=== PATIENT | male | born 1980 | race Two or more races ===

== ENCOUNTER → 2018-12-12 | Outpatient (CLI) | payer OTHER ==
[~2018-12-12] MED LIST: CHLO500T14 PO; CONTRAST GIVEN. MC PRN; ETOD400T PO; HYDR-2761 PO; IOHEXOL 180 MG/ML 10 ML VIAL. IJ ONE
[2018-12-12 09:17] VITALS: BP 117/69
--- NOTE | 2018-12-12 10:00 | NUR ---
bandaid on mid back site was clean and dry- Addendum: 12/12/18 at 1308 by ROGELIO NETTLES RN pt c/o achy discomfort at site- hand held cool gel pack applied to site with some relief. reviewed d/c instructions. pt taken out to vehicle per w/c- driven home by henry
--- NOTE | 2018-12-12 10:24 | RAD ---
Lumbar myelogram, 12/12/2018: History: Radicular left leg pain Under local anesthesia, aseptic conditions and fluoroscopic guidance a lumbar puncture was performed at the upper L3 level utilizing a 25-gauge Kathy spinal needle. Good clear CSF flow was obtained following which 12 cc of Omnipaque 180 was injected into the thecal sac. The spinal needle was then removed and hemostasis obtained. Appropriate digital imaging was then performed. 2.4 minutes of fluoroscopy time is utilized. 14 fluoroscopic spot images were recorded. The patient tolerated the procedure well and was sent to CT in good condition. The following findings were delineated on the myelogram: 1. The thecal sac throughout the lower lumbar spine is generally slightly narrowed compatible with congenitally short pedicles. There is a mildly prominent anterior epidural space at L5-S1 with the thecal sac terminating just inferior to the disc level. 2. There is a mild anterior extradural defect at L4-5. 3. There is symmetric opacification of the nerve root sleeves. CT lumbar spine-post myelogram, 12/12/2018: Multidetector CT imaging was performed with multiplanar reconstructions produced. The following findings are delineated: 1. No significant posterior disc bulge or protrusion is seen at L1-2, L2-3 or L3-4. The central spinal canal and neural foramina are well maintained. 2. At L4-5 there is mild broad-based posterior annular bulging. There is mild posterior ligamentous thickening related to minimal facet joint arthropathy. The thecal sac measures 7-8 mm in AP diameter at the midline at this level. There is mild inferior foraminal narrowing bilaterally. 3. At L5-S1 there is a small posterior disc protrusion centered just to the right of midline. This does not significantly narrow the thecal sac. It does abut and impress upon the anterior aspects of the S1 nerve root sleeves, more so on the right. There are minimal degenerative changes involving the facet joints. The neural foramina are widely patent. IMPRESSION: 1. Short pedicles producing mild generalized narrowing of the thecal sac in the lower lumbar spine. 2. Mild degenerative changes at L4-5 and L5-S1 as described above. 3. Small posterior disc protrusion centered just to the right of midline at L5-S1, similar to that seen on 08/29/2016. PQRS Compliance Statement: One or more of the following individualized dose reduction techniques were utilized for this examination: 1. Automated exposure control 2. Adjustment of the mA and/or kV according to patient size 3. Use of iterative reconstruction technique
== END | disposition home or self-care (01) ==
LOC: RAD 08:00
PROVIDERS: ATTEND Neurological Surgery
DX: M48.061 Spinal stenosis, lumbar region without neurogenic claudication (principal); M47.26 Other spondylosis with radiculopathy, lumbar region; M51.16 Intervertebral disc disorders with radiculopathy, lumbar region; M47.818 Spondylosis without myelopathy or radiculopathy, sacral and sacrococcygeal region; M53.3 Sacrococcygeal disorders, not elsewhere classified
CPT/HCPCS: 72132; 72265; Q9965

== ENCOUNTER → 2018-12-25 | Outpatient (CLI) | payer OTHER ==
[2018-12-12 09:17] VITALS: BP 117/69
[~2018-12-25] MED LIST changes: -CONTRAST GIVEN. MC PRN; -IOHEXOL 180 MG/ML 10 ML VIAL. IJ ONE
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
== END | disposition home or self-care (01) ==
LOC: PNCL 14:10
PROVIDERS: ATTEND Anesthesiology
DX: M54.5 Low back pain (principal); M79.605 Pain in left leg; M19.90 Unspecified osteoarthritis, unspecified site; Z87.828 Personal history of other (healed) physical injury and trauma
CPT/HCPCS: G0463